=== PATIENT | female | born 1950 | race Caucasian/White ===

== ENCOUNTER 2017-07-23 14:17 | Outpatient (CLI) | END 2017-07-23 16:40 | disposition home or self-care (01) ==

== ENCOUNTER 2017-08-09 14:38 | Outpatient (CLI) | END 2017-08-09 16:51 | disposition home or self-care (01) ==

== ENCOUNTER 2018-01-06 11:41 | Day surgery (SDC) | END 2018-01-06 16:56 | disposition home or self-care (01) ==

== ENCOUNTER → 2018-02-18 | Outpatient (CLI) | END | disposition home or self-care (01) ==

== ENCOUNTER 2018-02-23 09:30 | Day surgery (SDC) | END 2018-02-23 20:10 | disposition home or self-care (01) ==